=== PATIENT | male | born 1995 | race Caucasian/White ===

== ENCOUNTER 2019-10-09 16:40 | Emergency (ER) | payer SELFPAY ==
[2019-10-09 16:47] VITALS: BP 162/69; PULSE 99; TEMP 99.8; BMI 27.2
--- NOTE | 2019-10-09 16:50 | PDOC ---
History of Present Illness - General Stated Complaint: FEVER & COUGH History Source: Patient Exam Limitations: No Limitations Past History - Past Medical History Allergies/Adverse Reactions: Allergies Allergy/AdvReac Type Severity Reaction Status Date / Time No Known Allergies Allergy Verified 10/09/19 16:47 *Physical Exam - Physical Exam General Appearance: No: Apparent Distress HEENT: positive: Pharyngeal Erythema (mild). negative: Muffled/Hoarse voice, Tonsillar Exudate, Tonsillar Erythema Respiratory/Chest: positive: Lungs Clear, Normal Breath Sounds. negative: Respiratory Distress Cardiovascular: positive: Regular Rhythm, Regular Rate, S1, S2. negative: Murmur Integumentary: positive: Normal Color Neurologic: positive: Alert Medical Decision Making - Medical Decision Making 24 y/o M with no sig pmh presents with cough from yesterday and woke with temp of 100 today. Denies sore throat, sob, cp, abd pain, n/v, recent travel, known exposure to anyone with COVID. Did not take any antipyretics today. Works at [employer] here COVID screening negative per CDC guidelines Likely viral URI COVID self quarantine instructions provided 10/09/19 16:47 Discharge - Discharge Information Problems reviewed: Yes Clinical Impression/Diagnosis: Viral URI Condition: Stable Disposition: HOME - Admission No - Additional Discharge Information Prescription Drug Monitoring Program (I-STOP) results: I-STOP not reviewed - Follow up/Referral - Patient Discharge Instructions Patient Printed Discharge Instructions: DI for Viral Upper Respiratory Infection -- Adult Additional Instructions: Please see attached instructions - Post Discharge Activity
== END 2019-10-09 17:10 | disposition home or self-care (01) ==
LOC: JER 16:40
DX: J06.9 Acute upper respiratory infection, unspecified (principal); B97.89 Other viral agents as the cause of diseases classified elsewhere
CPT/HCPCS: 99282-25